=== PATIENT | female | born 1980 | race Caucasian/White ===

== ENCOUNTER 2018-05-10 10:28 | Outpatient (CLI) | payer MEDICAID ==
[~2018-05-10] VITALS: Ht 149.9 cm; Wt 54.6 kg
[2018-05-10] MEDS ORDERED: FER325 PO (10:50)
[2018-05-10] MEDS ORDERED: PREN-93 PO (10:50)
[2018-05-10 10:51] VITALS: BP 109/72; PULSE 80; RESP 18; Ht 149.9 cm; Wt 54.6 kg
[2018-05-10] MEDS: LACTATED RINGER'S 1,000 ML IV SCH ×2 (11:59→14:46)
[2018-05-10] MEDS: TERBUTALINE 1 MG/ML INJ SC PRN ×2 (12:00→15:25)
[2018-05-10] MEDS ORDERED: CEFTRIAXONE 1 GM/50 ML (PMX) 50 ML IVPB ONE (16:00)
--- NOTE | 2018-05-10 16:00 | PN ---
Triage Information Date/Time Sent in from [facility] clinic to rule out labor Reason for visit: Uterine contractions Weeks of Gestation 33 weeks and 2 days /Para 3 para 2 Diabetes: gestational Hypertention: none Objective Vital Signs Date Temp Pulse Resp B/P (MAP) Pulse Ox O2 O2 Flow FiO2 Time Delivery Rate 05/10/18 98.3 80 18 109/72 Room Air 10:51 (84) Heart Rate: 140's Heart Rate Comments heart tones appeared reactive Contractions: < 5 Minutes Apart Exam Reported to be long and closed Results/Medications Result Diagram: 05/10/18 1149 Results 24 hrs Laboratory Tests Test 05/10/18 10:30 05/10/18 11:49 Urine Color YELLOW Urine Clarity SLIGHTLY CLOUDY A Urine pH 7.0 Urine Specific [place] 1.004 Urine Ketones NEGATIVE Urine Nitrite NEGATIVE Urine Bilirubin NEGATIVE Urine Urobilinogen NEGATIVE Urine Leukocyte Esterase 3+ H Urine Microscopic RBC 2 Urine Microscopic WBC 15 H Urine Squamous Epithelial Cells MODERATE Urine Bacteria FEW A Urine Hemoglobin NEGATIVE Urine Glucose NEGATIVE Urine Total Protein NEGATIVE White Blood Count 10.6 Red Blood Count 3.77 L Hemoglobin 11.6 L Hematocrit 35.0 L Mean Corpuscular Volume 92.8 Mean Corpuscular Hemoglobin 30.8 Mean Corpuscular Hemoglobin Concent 33.1 Red Cell Distribution Width 12.6 Platelet Count 227 Mean Platelet Volume 11.5 H Immature Granulocytes % 0.300 Neutrophils % 78.3 H Lymphocytes % 15.4 Monocytes % 5.1 Eosinophils % 0.6 Basophils % 0.3 Nucleated Red Blood Cells % 0.0 Immature Granulocytes # 0.030 Neutrophils # 8.3 H Lymphocytes # 1.6 Monocytes # 0.5 Eosinophils # 0.1 Basophils # 0.0 Nucleated Red Blood Cells # 0.0 Medications Current Medications Lactated Ringer's 1,000 ml @ 200 mls/hr Q5H IV Last administered on 05/10/18at 14:46; Admin Dose 200 MLS/HR; Start 05/10/18 at 11:10 Terbutaline Sulfate (Brethine) 0.25 mg PRN PRN SC PAIN Last administered on 05/10/18at 15:25; Admin Dose 0.25 MG; Start 05/10/18 at 12:00 Imaging Results Cervix length measures 2.7 cm CHAVA reported to be 11.6 cm Disposition: Discharge Assessment/Plan Patient was placed on bed and pelvic Follow-up with dentist in 2 days Continue care as routine ALLEN JARVIS MD May 10, 2018 15:59
[2018-05-10] MEDS ORDERED: SOD CHLORIDE 0.9% 1,000 ML IV SCH (16:30)
== END 2018-05-10 17:10 | disposition home or self-care (01) ==
LOC: OBT 10:28 → L-D 10:30 → OBT 17:10
PROVIDERS: ATTEND Obstetrics & Gynecology
DX: O62.9 Abnormality of forces of labor, unspecified (principal); O24.419 Gestational diabetes mellitus in pregnancy, unspecified control; Z3A.33 33 weeks gestation of pregnancy
CPT/HCPCS: 36415; 76817; 81001; 85025; 96360; 96361; 96372; 96375; J0696; J3105; J7030; J7120; Z7500; G0463

== ENCOUNTER 2018-05-13 15:53 | Outpatient (CLI) | payer MEDICAID ==
[~2018-05-13] VITALS: Ht 149.9 cm; Wt 54.9 kg
[~2018-05-13 15:53] MED LIST: FER325 PO; PREN-93 PO
[2018-05-13 16:04] VITALS: Ht 149.9 cm; Wt 54.9 kg
[2018-05-13 16:05] VITALS: BP 105/73; PULSE 86; RESP 18
[2018-05-13] MEDS ORDERED: LACTATED RINGER'S 1,000 ML IV ONE (16:30)
[2018-05-13] MEDS ORDERED: LACTATED RINGER'S 1,000 ML IV SCH (16:30)
[2018-05-13] MEDS ORDERED: TERBUTALINE 1 ML ONE (18:05)
[2018-05-13] MEDS ORDERED: TERBUTALINE 1 MG/ML INJ SC ONE ×2 (18:30→19:30)
--- NOTE | 2018-05-14 02:06 | PN ---
Triage Information Date/Time 05/13/2018 at 2000 Reason for visit: Patient seen at [facility] clinic today was noted to have uterine contractions sent to triage for further evaluation Weeks of Gestation 33 weeks and 5 days /Para Diabetes: gestational Diabetes management: diet controlled Hypertention: none Objective Vital Signs Date Temp Pulse Resp B/P (MAP) Pulse Ox O2 O2 Flow FiO2 Time Delivery Rate 05/13/18 98.2 86 18 105/73 Room Air 16:05 (84) Intake and Output 05/13/18 05/13/18 05/14/18 1515:00 23:00 07:00 IntakeIntake Total 1400 ml BalanceBalance 1400 ml Heart Rate: 140's Contractions: < 5 Minutes Apart Results/Medications Result Diagram: 05/13/18 1703 Results 24 hrs Laboratory Tests Test 05/13/18 17:03 05/13/18 17:30 White Blood Count 8.9 Red Blood Count 3.57 L Hemoglobin 11.6 L Hematocrit 36.4 L Mean Corpuscular Volume 102.0 H Mean Corpuscular Hemoglobin 32.5 Mean Corpuscular Hemoglobin Concent 31.9 L Red Cell Distribution Width 13.0 Platelet Count 144 # Mean Platelet Volume 11.8 H Immature Granulocytes % 0.300 Neutrophils % 78.2 H Lymphocytes % 16.1 Monocytes % 4.7 Eosinophils % 0.5 Basophils % 0.2 Nucleated Red Blood Cells % 0.0 Immature Granulocytes # 0.030 Neutrophils # 6.9 Lymphocytes # 1.4 Monocytes # 0.4 Eosinophils # 0.0 Basophils # 0.0 Nucleated Red Blood Cells # 0.0 Urine Color YELLOW Urine Clarity CLEAR Urine pH 7.0 Urine Specific [place] 1.009 Urine Ketones NEGATIVE Urine Nitrite NEGATIVE Urine Bilirubin NEGATIVE Urine Urobilinogen NEGATIVE Urine Leukocyte Esterase 1+ H Urine Microscopic RBC 0 Urine Microscopic WBC 2 Urine Squamous Epithelial Cells FEW Urine Hemoglobin NEGATIVE Urine Glucose NEGATIVE Urine Total Protein NEGATIVE Disposition: Discharge Assessment/Plan 37 years old with single intrauterine at 33 weeks and 5 days with gestational diabetes A1 seen at [facility] clinic today. Uterine contraction was noted. She referred to triage for further evaluation. heart rate category 1. Initially she had uterine contraction every 1-4 minutes. Urinalysis performed which was within normal limits. Ultrasound performed with normal cervical length (3.2 cm). Biophysical profile 8 out of 8 and CHAVA of 9.9 IV fluid and 2 doses of terbutaline given. She had no further uterine contractions. Sign and symptom of labor, preeclampsia and kick count discussed in detail with patient. She expressed understanding. All of her questions answered. She discharged home in stable condition with follow-up with her primary OB in 2-3 days. GEORGE OLIVAREZ May 14, 2018 02:06
== END 2018-05-13 21:04 | disposition home or self-care (01) ==
LOC: OBT 15:53 → L-D 15:53 → OBT 21:04
PROVIDERS: ATTEND Obstetrics & Gynecology
DX: O24.410 Gestational diabetes mellitus in pregnancy, diet controlled (principal); Z3A.33 33 weeks gestation of pregnancy
CPT/HCPCS: 36415; 76817; 76818; 81001; 85025; 96360; 96361; 96372; J3105; J7120; Z7500; G0463

== ENCOUNTER 2018-06-16 12:20 | Inpatient (IN) | payer MEDICAID ==
[~2018-06-16] VITALS: Ht 152.4 cm; Wt 56.6 kg
[2018-06-16] MEDS ORDERED: LACTATED RINGER'S 1,000 ML IV SCH (14:19)
[2018-06-16] MEDS ORDERED: AMPICILLIN 2 GM/NS (PMX) 100 ML IV ONE (14:30)
[2018-06-16] MEDS ORDERED: OXYTOCIN 30 UNITS/LR 500 ML IV SCH ×2 (14:30)
[2018-06-16] MEDS ORDERED: IBUPROFEN 600 MG TAB PO PRN (14:30)
[2018-06-16] MEDS ORDERED: OXYTOCIN 30 UNITS/LR 500 ML IV PRN ×2 (14:30→17:30)
[2018-06-16] MEDS ORDERED: MISOPROSTOL 200 MCG TAB PR PRN ×2 (14:30→17:30)
[2018-06-16] MEDS ORDERED: METHYLERGONOVINE 0.2 MG INJ IM PRN ×2 (14:30→17:30)
[2018-06-16] MEDS ORDERED: CARBOPROST 250 MCG INJ IM PRN ×2 (14:30→17:30)
[2018-06-16] MEDS ORDERED: LIDOCAINE 1% (MPF) 30 ML INJ INJ PRN (14:30)
--- NOTE | 2018-06-16 14:46 | HP ---
Date/Time of Note Date/Time of Note DATE: 06/16/18 TIME: 14:42 OB - History Hx of Present Free Text/Dictation 38-year-old female 3 para 2 at 38+ weeks gestation admitted complaining of onset of labor contractions started at 6:30 AM Last Menstrual Period: September 07, 2017 Estimated Due Date: Jun 26, 2018 : 3 Para: 2 Care: Good Care Ultrasounds: Normal mid trimester US Obstetrical Complications: Gestational Diabetes Medical Complications: None Past Family/Social History * Past Medical, Surgical, Family and Obstetric Histories reviewed from chart. Blood Type: O+ Rubella: immune RPR/VDRL: Negative GBS Status: Positive (This information is obtained after delivery) HBsAG: Negative OB Admission Exam Physical Exam HEENT: WNL Heart: Rhythm Normal Lungs: Clear, Equal Abdomen: WNL Extremities: Normal Reflexes: Normal Cervical Dilatation: 10cm Effacement: 100% Station: -1 Membranes: Intact Heart Rate: 140's Accelerations: Accelerations Present Decelerations: No Decelerations Varibility: Marked Contractions on Admission: < 5 Minutes Apart Date/Time Contractions Began: June 16, 2018 at 6:30 AM Frequency of Contractions: Every 10 minutes Duration: Over 1 minute Intensity: Moderate OB Assessment/Plan Reason for admission: active labor Other Assessment: Term gestation Other plan: Imminent delivery is contemplated ALLEN JARVIS MD Jun 16, 2018 14:46
--- NOTE | 2018-06-16 14:50 | LDN ---
Date/Time of Note Date/Time of Note DATE: 06/16/18 TIME: 14:48 Delivery Summary Normal spontaneous vaginal delivery of a viable over intact perineum Weeks of Gestation 38+ Placenta Delivered: Spontaneously, Intact & Complete Meconium: none Episiotomy: No Perineal laceration: 1 Laceration repair: First-degree perineal laceration was repaired in layers using 3-0 chromic on small half needle Anesthesia type: Local Estimated blood loss: 200 Sponge & Needle done & correct: Yes All needle counts correct: Yes Any foreign bodies felt in the: No Delivery Information Sex Sex: female Apgars 1 Minute: 9 5 Minute: 9 Suctioning Nose & mouth suctioned at veena: Yes Delee suction performed: No Umbilical Cord Umbilical cord with: 3 Vessels Cord presentations: no nuchal cord Cord Blood was obtained: Yes Mother & Baby Disposition Disposition Mom & Baby to Maternity; Good: Yes (Mother and baby were recovered in good condition) Mom transferred to: Other (Maternity) Baby to NICU: No ALLEN JARVIS MD Jun 16, 2018 14:50
[2018-06-16] MEDS ORDERED: KETOROLAC 30 MG INJ IV STA (14:52)
--- NOTE | 2018-06-16 14:52 | QN ---
Documentation Comment Patient had positive GBS and she entered the hospital fully dilated and within minutes she had the baby Milieu Coordinator were notified about untreated positive GBS mother and infant ALLEN JARVIS MD Jun 16, 2018 14:52
[2018-06-16] MEDS ORDERED: AZITHROMYCIN 500MG/NS (PMX) 250 ML IVPB ONE ×2 (15:00→21:00)
[2018-06-16 17:00] VITALS: BP 131/79; PULSE 78; RESP 18
[2018-06-16] MEDS ORDERED: LACTATED RINGER'S 1,000 ML IV* SCH (17:01)
[2018-06-16] MEDS ORDERED: WITCH HAZEL/GLYCERIN PAD PR PRN (17:30)
[2018-06-16] MEDS ORDERED: DIBUCAINE 1% 30 GM OINT TOP PRN (17:30)
[2018-06-16] MEDS ORDERED: ZOLPIDEM 5 MG TAB PO PRN (17:30)
[2018-06-16] MEDS ORDERED: LANOLIN HPA 1 PKT TOP PRN (17:30)
[2018-06-16] MEDS ORDERED: BENZOCAINE 20% 56 ML SPRAY TOP PRN (17:30)
[2018-06-16] MEDS ORDERED: HYDROCODONE/APAP (5/325) TAB PO PRN ×2 (17:30)
[2018-06-16] MEDS: IBUPROFEN 600 MG TAB PO SCH ×2 (17:51→23:59)
[2018-06-16 18:00] VITALS: BP 146/74; PULSE 81; RESP 18
[2018-06-16] MEDS ORDERED: AMPICILLIN 1 GM/NS (PMX) 50 ML IV SCH (18:30)
[2018-06-16 19:50] VITALS: BP 118/81; PULSE 80; RESP 18
[2018-06-16] MEDS: SENNA/DOCUSATE NA (8.6MG/50MG) TAB PO SCH (20:32)
[2018-06-16] MEDS: MAGNESIUM HYDROXIDE 30ML CUP PO SCH (20:32)
[2018-06-17 03:15] VITALS: BP 110/68; PULSE 74; RESP 20
[2018-06-17] MEDS: IBUPROFEN 600 MG TAB PO SCH ×4 (05:28→23:36)
[2018-06-17 08:00] VITALS: BP 98/67; PULSE 70; RESP 19
[2018-06-17] MEDS: MAGNESIUM HYDROXIDE 30ML CUP PO SCH ×2 (09:16→21:20)
[2018-06-17] MEDS: SENNA/DOCUSATE NA (8.6MG/50MG) TAB PO SCH ×2 (09:16→21:20)
[2018-06-17 16:00] VITALS: BP 111/72; PULSE 68; RESP 19
--- NOTE | 2018-06-17 16:38 | DS ---
Date/Time of Note Date/Time of Note Home today or next day DATE: 06/17/18 TIME: 16:34 Obstetrical Discharge Record Final Diagnosis Final Diagnosis: Term delivered Other Final Diagnosis Status post vaginal delivery Vaginal Delivery Obstetrical Delivery: Spontaneous, Laceration, Repaired Condition on Discharge Physical Assessment Last Vitals: See nurse's notes Voiding: Yes Bowel Movement: Yes Breast: Soft, non-tender, Filling Fundus: Firm Abdomen and Incision: Abdomen is soft and fundus is firm Episiotomy: Perineum is clean and appears to be healing well Calf Tenderness: No Patient Condition: Good ALLEN JARVIS MD Jun 17, 2018 16:38
[2018-06-17] MEDS ORDERED: IBUP-1542 PO (16:40)
--- NOTE | 2018-06-17 16:40 | PD.PPDC ---
[employer] Discharge Instruction Provider Information Physician Information 38-year-old female had vaginal delivery Diagnosis [id number] Final Diagnosis: [id number] Status post vaginal delivery Condition [id number] Patient Condition: Qscff4e Good Diet [id number] Diet: Drxsk8e Resume Regular Diet Activity/Restrictions [id number] Activity: [id number] Normal Activity May Shower Wllis3Hg Restrictions: Onppz4i Nothing in the Vagina [id number] Return to Work or School: [id number] Aug 08, 2018 Follow-up Follow-up with Physician: 2, 4, Week/Weeks (In clinic) Return to clinic for [id number] OB Instructions: [id number] Breast Tenderness Depression Comment: Pelvic rest for 6 weeks ALLEN JARVIS MD Jun 17, 2018 16:40
[2018-06-17 20:00] VITALS: BP 114/67; PULSE 79; RESP 18
[2018-06-18 03:30] VITALS: BP 98/61; PULSE 82; RESP 20
[2018-06-18] MEDS: IBUPROFEN 600 MG TAB PO SCH ×2 (05:34→11:35)
[2018-06-18 08:00] VITALS: BP 101/61; PULSE 76; RESP 18
[2018-06-18] MEDS ORDERED: MEASLES,MUMPS,RUBELLA VACCINE INJ SC* ONE (09:00)
[2018-06-18] MEDS ORDERED: VARICELLA VACCINE LIVE/PF 1,350 UNIT/0.5 ML ML SC* ONE (09:00)
[2018-06-18] MEDS ORDERED: DIPHTH/TET/ACEL PERTUSS (ADULT) 0.5 ML VIAL IM* ONE (09:00)
[2018-06-18] MEDS: MAGNESIUM HYDROXIDE 30ML CUP PO SCH (11:35)
[2018-06-18] MEDS: SENNA/DOCUSATE NA (8.6MG/50MG) TAB PO SCH (11:35)
--- NOTE | 2018-06-20 23:05 | NSTRPT ---
NST Information Datetime Report Generated by CPN: 06/20/2018 23:05 Datetime: 06/15/2018 08:08 NST Information EGA: 38.3 Test Number: 10 Time on Monitor: 06/15/2018 08:29 Time off Monitor: 06/15/2018 09:00 NST Duration (Min): 31 Reason for NST: Diabetes Mellitus; Other Reason for NST Other: A1DM/AMA Test and Monitor Explained: Monitor Explained; Test Explained; Verbalized Understanding Pulse: 63 Resp: 18 SBP: 137 DBP: 78 Test Evaluation NST Interventions: Reposition Patient Patient States Movement: Present Contraction Frequency: none FHR Baseline : 125 Variability: Moderate 6-25bpm Accelerations: 15X15 Decelerations: None FHR Category: Category I NST Results: Reactive Comments: TO uS-CHAVA 11.3 CM CEPHALIC FBS 86 REPEAT BP 125/75 _ 119/77 Baseline BP on 05/10 eas 116/71 on initial NST evaluation. Electronically Signed By E-Signature: with User ID: [id number] Datetime: 06/10/2018 08:18 NST Information EGA: 37.5 NST Duration (Min): 28 Datetime: 06/07/2018 08:17 NST Information EGA: 37.2 NST Duration (Min): 26 Datetime: 05/31/2018 08:28 NST Information EGA: 36.2 NST Duration (Min): 24 Datetime: 05/24/2018 08:08 NST Information EGA: 35.2 NST Duration (Min): 48 Datetime: 05/20/2018 08:35 NST Information EGA: 34.5 NST Duration (Min): 47 Datetime: 05/18/2018 08:47 NST Information EGA: 34.3 NST Duration (Min): 26 Datetime: 05/13/2018 14:26 NST Information EGA: 33.5 NST Duration (Min): 28 Datetime: 05/10/2018 09:14 NST Information EGA: 33.2 NST Duration (Min): 31
== END 2018-06-18 14:45 | disposition home or self-care (01) | DRG 807 ==
LOC: OBT 12:20 → L-D 12:20 → OBT 14:00 → L-D 14:00 → PP1 16:46
PROVIDERS: ADMIT Obstetrics & Gynecology; ATTEND Obstetrics & Gynecology
PROC: 10E0XZZ Delivery of Products of Conception, External Approach (ICD-10-PCS; principal; 2018-06-16)
PROC: 0HQ9XZZ Repair Perineum Skin, External Approach (ICD-10-PCS; 2018-06-16)
DX: O24.420 Gestational diabetes mellitus in childbirth, diet controlled (principal); Z37.0 Single live birth; O70.0 First degree perineal laceration during delivery; O99.824 Streptococcus B carrier state complicating childbirth; Z3A.38 38 weeks gestation of pregnancy
CPT/HCPCS: 85025; 85610; 85730; 86592; 86850; 86900; 86901; 87340; 90716; G0463; J0290; J0456; J7120